=== PATIENT | female | born 1980 | race Two or more races ===

== ENCOUNTER 2019-11-09 00:43 | Emergency (ER) | payer OTHER ==
[~2019-11-09] VITALS: Ht 160 cm; Wt 71.7 kg
[2019-11-09] MEDS ORDERED: ULTRACET PO (17:34)
[2019-11-09] MEDS ORDERED: MORGIDOX100 MG PO (17:34)
== END 2019-11-09 03:31 | disposition home or self-care (01) ==
LOC: ER 00:43
DX: O20.8 Other hemorrhage in early pregnancy (principal); O30.011 Twin pregnancy, monochorionic/monoamniotic, first trimester

== ENCOUNTER 2019-11-09 11:52 | Emergency (ER) | payer OTHER ==
[~2019-11-09] VITALS: Ht 160 cm; Wt 71.7 kg
[2019-11-09] MEDS ORDERED: ULTRACET PO (17:34)
[2019-11-09] MEDS ORDERED: MORGIDOX100 MG PO (17:34)
== END 2019-11-09 17:44 ==
LOC: ER 11:52
DX: O02.1 Missed abortion (principal)

== ENCOUNTER → 2020-11-15 | Outpatient (CLI) | payer OTHER ==
[~2020-11-15] MED LIST: MORGIDOX100 MG PO; ULTRACET PO
== END | disposition home or self-care (01) ==
LOC: PRENATAL 09:30
PROVIDERS: ATTEND Obstetrics & Gynecology Maternal & Fetal Medicine
DX: O35.0XX1 Maternal care for (suspected) central nervous system malformation in fetus, fetus 1 (principal); O35.3XX1 Maternal care for (suspected) damage to fetus from viral disease in mother, fetus 1; O98.512 Other viral diseases complicating pregnancy, second trimester; Z36.89 Encounter for other specified antenatal screening; Z3A.26 26 weeks gestation of pregnancy